=== PATIENT | female | born 1970 | race Asian ===

== ENCOUNTER 2020-08-12 11:55 | Outpatient (CLI) | payer OTHER, SELFPAY ==
[2020-08-12 12:24] LABS: Basophils Percent Auto 0.5 % (0.2-1.2); Eosinophils Absolute Auto 0.3 K/mm3 (0-0.3); Eosinophils Percent Auto 4.4 % (0-4.4); Hematocrit 41.3 % (37.0-47.0); Hemoglobin 13.7 g/dL (12.0-15.0); Immature Granulocyte Absolute 0.01 K/mm3 (0.00-0.031); Immature Granulocyte Percent A 0.2 % (0-0.5); Lymphocytes Absolute Auto 2.15 K/mm3 (0.9-3.2); Lymphocytes Percent Auto 34.9 % (18.3-44.2); Mean Corpuscular HGB Conc 33.2 g/dl (32-36); Mean Corpuscular Volume 93.4 fl (80-100); Mean Platelet Volume 9.4 fl (7.4-10.4); Monocytes Absolute Auto 0.4 K/mm3 (0.1-0.6); Monocytes Percent Auto 6.7 % (2.6-8.5); Neutrophils Absolute Auto 3.3 K/mm3 (1.3-6.7); Neutrophils Percent Auto 53.3 % (45.5-73.1); Platelet Count Result 315 k/mm3 (150-375); Red Blood Count 4.42 M/mm3 (4.2-5.4); Red Cell Distribution Width 12.6 % (11.5-14.5); White Blood Count 6.2 K/mm3 (4.5-10.0)
[2020-08-12 12:34] LABS: Alanine Aminotransferase 24 U/L (4-35); Albumin Level 4.3 g/dL (3.5-5.1); Alkaline Phosphatase 56 U/L (38-126); Anion Gap 8 mmol/L (8-16); Aspartate Amino Transferase 30 U/L (14-36); Bilirubin,Total 0.4 mg/dL (0.2-1.3); Blood Urea Nitrogen 18 mg/dL (7-17); Calcium 9.5 mg/dL (8.4-10.2); Carbon Dioxide 29 mmol/L (22-30); Chloride 102 mmol/L (98-107); Cholesterol 230 mg/dL (0-200); Estimated Glomerular Filt Rate > 60; Glucose 103 mg/dL (65-105); HDL Direct 62 mg/dL; Sodium 139 mmol/L (137-145); Triglycerides 134 mg/dL (<150)
[2020-08-12 12:45] LABS: LDL Cholesterol Direct 123 mg/dL
[2020-08-12 13:18] LABS: Vitamin D 25 Hydroxy 38.2 ng/mL
== END 2020-08-12 11:56 | disposition home or self-care (01) ==
LOC: ANHLAB 11:56
PROVIDERS: PCP Family Medicine Sports Medicine; Visit Provider Obstetrics & Gynecology
DX: Z00.00 Encounter for general adult medical examination without abnormal findings (principal)
CPT/HCPCS: 36415; 80053; 80061; 82306; 84443; 85025

== ENCOUNTER → 2020-10-29 10:26 | Outpatient (CLI) | payer OTHER, SELFPAY ==
--- NOTE | ~2020-10-29 | MM_ITS ---
EXAMINATION: MM screening mendez BI w tello HISTORY: Screening mammogram TECHNIQUE: Craniocaudal and mediolateral oblique 3-D tomosynthesis images were obtained and synthetic 2-D images were generated. CAD analysis was submitted and interpreted. COMPARISON: 02/10/2019 bilateral digital screening mammogram 01/23/2018 diagnostic left digital mammogram and complete left breast ultrasound examination bilateral digital screening mammogram 12/19/2014 bilateral digital screening mammogram BREAST PARENCHYMAL COMPOSITION: There are scattered areas of fibroglandular density. FINDINGS: There is a circumscribed 6.7 mm opacity in the posterior upper right breast on MLO view, no t evident on previous mammogram examinations. Diagnostic right mammogram and targeted right breast ul trasound examination are recommended. Otherwise there is no evidence of suspicious mass, calcification, or architectural distortion to sugg est malignancy in either breast. There has been no suspicious interval change. IMPRESSION: 6.7 mm possible new opacity in the posterior upper right breast on MLO view. Diagnostic right mammogr am and right breast ultrasound examination are recommended. BI-RADS Category 0: Incomplete: Needs additional imaging evaluation. Reviewed, dictated and finalized at location A. USION DIE REPAIR MANAGER IMPRESSION: 6.7 mm possible new opacity in the posterior upper right breast on MLO view. Di agnostic right mammogram and right breast ultrasound examination are recommende d. BI-RADS Category 0: Incomplete: Needs additional imaging evaluation.
--- NOTE | ~2020-10-29 | DEXA_ITS ---
Bone Density Report Name: Anjelica Farah Age: 50 Sex: Female Ethnicity: Date of : 1970 Indication: postmenopausal; screening for osteoporosis; parental hip fracture; Referring Provider: OSCAR RITTER Study: Bone densitometry was performed. Exam Date: October 29, 2020 Accession number: [id number] Bone Density: Region BMD T-score Z-score Classification AP Spine (L1-L4) 1.172 1.1 2.1 Normal Femoral Neck (Left) 0.892 0.4 1.3 Normal Total Hip (Left) 1.088 1.2 1.8 Normal Femoral Neck (Right) 0.874 0.2 1.1 Normal Total Hip (Right) 1.072 1.1 1.6 Normal Total Hip Mean 1.080 1.2 1.7 Normal World Health Organization criteria for BMD impression classify patients as: Normal (T-score at or above -1.0), Osteopenia (T-score between -1.0 and -2.5), or Osteoporosis (T-score at or below -2.5). 10-year Fracture Risk: FRAX not reported because: All T-scores for Spine Total, Hip Total, Femoral Neck at or above -1.0 Clinical Information Provided by Patient: Parent has had a hip fracture Has used the following medications: Vitamin D Patient maximum height was 63 Menopause Age: 49 Drinks caffeinated beverages Onset of menses at age 11 Number of children 2 Impression: The patient has normal bone mass. The patient has risk factors, including: parental hip fracture. Discussion: BONE DENSITY IS ABOVE THE MINIMUM DESIRABLE LEVEL AT ALL SKELETAL SITES TESTED. This patient?s bone mineral density is above the minimum desirable level (T-score -1.0 or better) at all sites measured. The patient should follow a healthful lifestyle (good nutrition with adequate calcium and vitamin D, and appropriate weight-bearing exercise). Follow-Up: Consider repeating this study in 5 years or sooner if there is some new clinical indication. Reported by: ROSSANA on 10/29/2020 10:47:00 AM. Reviewed, dictated and finalized at location AEvangelist PATINO
== END ==
PROVIDERS: Visit Provider Obstetrics & Gynecology
DX: Z12.31 Encounter for screening mammogram for malignant neoplasm of breast (principal); Z78.0 Asymptomatic menopausal state; R92.8 Other abnormal and inconclusive findings on diagnostic imaging of breast
CPT/HCPCS: 77063; 77067; 77080

== ENCOUNTER → 2020-11-27 07:54 | Outpatient (CLI) | payer OTHER, SELFPAY ==
--- NOTE | ~2020-11-27 | MMUS_ITS ---
EXAMINATION: MM diagnostic mammo unilat RT, US breast RT limited HISTORY: Follow-up right breast mass TECHNIQUE: Additional 3-D tomosynthesis images of the right breast were performed and synthetic 2-D i mages were generated. CAD analysis was submitted and interpreted. High resolution right breast ultras ound was performed. COMPARISON: Comparison to multiple prior studies sequentially, with oldest reviewed study dated 12/19. BREAST PARENCHYMAL COMPOSITION: Breast composed of scattered areas of fibroglandular density. FINDINGS: MAMMOGRAPHIC FINDINGS: There are no suspicious masses, calcifications or architectural distortion in the right breast. The m ass identified overlying the pectoralis muscle on prior screening mammogram is not visualized. ULTRASOUND: Right breast ultrasound: There are multiple lymph nodes of the right axilla with normal fatty hilum, largest measuring approximately 1.7 cm. IMPRESSION: 1. No evidence for malignancy in the right breast. Normal right axillary lymph nodes, likely reactive . 2. Routine yearly screening mammogram and regular clinical breast examination are recommended. BI-RADS Category 2: Benign finding(s). Reviewed, dictated and finalized at location A. T ASSIGNER IMPRESSION: 1. No evidence for malignancy in the right breast. Normal right axillary lymph nodes, likely reactive. 2. Routine yearly screening mammogram and regular clinical breast examination a re recommended. BI-RADS Category 2: Benign finding(s).
== END ==
PROVIDERS: PCP Family Medicine Sports Medicine; Visit Provider Obstetrics & Gynecology
DX: R92.8 Other abnormal and inconclusive findings on diagnostic imaging of breast (principal)
CPT/HCPCS: 76642; 77065

== ENCOUNTER 2022-03-23 20:38 | Outpatient (CLI) | payer OTHER, SELFPAY ==
[2022-03-23 21:02] LABS: Hematocrit 42.6 % (37.0-47.0); Hemoglobin 13.9 g/dL (12.0-15.0); Mean Corpuscular HGB Conc 32.6 g/dl (32-36); Mean Corpuscular Hemoglobin 30.5 pg (26-34); Mean Corpuscular Volume 93.6 fl (80-100); Mean Platelet Volume 9.3 fl (7.4-10.4); Platelet Count Result 336 k/mm3 (150-375); Red Blood Count 4.55 M/mm3 (4.2-5.4); Red Cell Distribution Width 12.3 % (11.5-14.5); White Blood Count 5.9 K/mm3 (4.5-10.0)
[2022-03-23 21:16] LABS: Alanine Aminotransferase 17 U/L (6-35); Albumin Level 4.1 g/dL (3.5-5.1); Alkaline Phosphatase 49 U/L (38-126); Anion Gap 6 mmol/L (8-16); Aspartate Amino Transferase 23 U/L (14-36); Bilirubin,Total 0.1 mg/dL (0.2-1.3); Blood Urea Nitrogen 12 mg/dL (7-17); Calcium 9.1 mg/dL (8.4-10.2); Carbon Dioxide 29 mmol/L (22-30); Chloride 104 mmol/L (98-107); Estimated Glomerular Filt Rate > 60; Glucose 98 mg/dL (65-110); Potassium 3.8 mmol/L (3.4-5.0); Sodium 139 mmol/L (137-145)
[2022-03-23 21:18] LABS: Hemoglobin A1C 5.9 % (<5.7)
[2022-03-23 21:33] LABS: T4 Thyroxine 9.89 ug/dL (5.53-11.0)
[2022-03-23 21:47] LABS: Thyroid Stimulating Hormone 0.405 uIU/mL (0.465-4.680)
[2022-03-23 21:55] LABS: Vitamin D 25 Hydroxy 46.2 ng/mL
[2022-03-27 04:14] LABS: FSH 67.6 mIU/mL (***)
[2022-03-28 09:57] LABS: Testosterone Total 16 ng/dL (2-45)
[2022-04-01 16:02] LABS: Estrogen 56.6 pg/mL
== END 2022-03-23 20:39 | disposition home or self-care (01) ==
LOC: ANHOBOP 20:40
PROVIDERS: Visit Provider Obstetrics & Gynecology
DX: N95.1 Menopausal and female climacteric states (principal)
CPT/HCPCS: 36415; 80053; 82306; 82672; 83001; 83002; 83036; 84403; 84436; 84443; 85027

== ENCOUNTER → 2022-12-19 13:03 | Outpatient (CLI) | payer OTHER, SELFPAY ==
--- NOTE | ~2022-12-19 | MM_ITS ---
EXAMINATION: MM screening mendez BI w tello HISTORY: Screening mammogram TECHNIQUE: Craniocaudal and mediolateral oblique 3-D tomosynthesis images were obtained and synthetic 2-D images were generated. CAD analysis was submitted and interpreted. COMPARISON: November 27, 2020 diagnostic right mammogram and limited right breast ultrasound October 29, 2020, February 14, 2019 bilateral screening mammogram examinations BREAST PARENCHYMAL COMPOSITION: There are scattered areas of fibroglandular density. FINDINGS: There is no evidence of suspicious mass, calcification, or architectural distortion to sugg est malignancy in either breast. There has been no suspicious interval change. IMPRESSION: 1. No mammographic evidence of malignancy. 2. Recommend routine screening mammography in one year. BI-RADS Category 1: Negative Reviewed, dictated and finalized at location A.
== END ==
PROVIDERS: PCP Family Medicine Sports Medicine; Visit Provider Obstetrics & Gynecology
DX: Z12.31 Encounter for screening mammogram for malignant neoplasm of breast (principal)
CPT/HCPCS: 77063; 77067

== ENCOUNTER 2023-08-04 01:38 | Day surgery (SDC) | payer OTHER, SELFPAY ==
[2023-07-25 14:13] VITALS: BMI 32.5
--- NOTE | 2023-08-04 07:21 | PM.HPGS ---
History of Present Illness History of Present Illness Consent: Risks, benefits, and alternatives have been discussed and questions answered. Patient agrees to proceed with procedure. Chief complaint: hx colon polyps Narrative: Anjelica Farah is a 53 year old female who was referred for colon cancer screening. Five years ago she had 3 tubular adenomas removed. Review of Systems Review of Systems: All systems reviewed & are unremarkable except as noted in HPI and below PMFSH Past Medical History Medical History (vaginal after ) Surgical History Surgical History History of laparoscopy Previous section S/P cholecystectomy Family History Family History Father Diabetes mellitus Mother Family history of hypercholesterolemia Hypertension Social History Social History Smoking status: Former smoker Tobacco type: cigarettes Smoking end date: 10/09/87 Alcohol intake: current Alcohol use details: socially Substance use: never Substance use type: does not use Lack of Transportation: No Lack of Food: Never True Current Housing: I Have Housing Concerned About Future Housing: No Difficulty Paying Gas/Electric Bills: No Difficulty Paying for Meds: No Currently Unemployed: No Education: Trade/Vocational Certificate Difficulty w/ Childcare or Family Care: No Living arrangements: with family Spiritual care concerns: No Meds Home Medications and Allergies Home Medications Medication Instructions Recorded Confirmed Type multivitamin 1 cap PO DAILY 08/12/20 08/04/23 History bupropion HCl 300 mg 24 hr tablet, 300 mg PO QAM #90 tabs 06/13/23 08/04/23 Rx extended release (Wellbutrin XL) Allergies Allergy/AdvReac Type Severity Reaction Status Date / Time No Known Allergies Allergy Verified 08/04/23 08:32 Exam Const: General: alert Orientation/consciousness: patient oriented x3 Resp: Auscultation: clear to auscultation bilaterally Cardio: Rhythm: regular rhythm GI: GI Palp: Yes Soft to palpation and No Tenderness to palpation present (GI) Neuro: General: patient oriented x3 Assessment and Plan Assessment and plan (1) Colon cancer screening: Code(s): Z12.11 - Encounter for screening for malignant neoplasm of colon Status: Acute Assessment and Plan: Colonoscopy with possible biopsy or polypectomy or cautery or injection of substances.
[2023-08-04 08:33] VITALS: BP 115/81; PULSE 75; RESP 18; TEMP 35.9; O2SAT 98
[2023-08-04] MEDS: LACTATED RINGERS 1,000 ML 150 ML IV CONT (08:36)
--- NOTE | 2023-08-04 09:06 | P.PNAN_ITS ---
Anes - Initial Pre Proc Eval Procedure: Operation Date: 08/04/23 10:00 Proposed Procedures p Colonoscopy - Murtaza Taveras MD Date/Time: 08/04/23 09:06 Surgeon: Murtaza Taveras MD Pre Op Diagnosis: hx colon polyps Patient Data Age: 53 Gender: F Height: 1.6 m Weight: 79.2 kg Last Vital Signs Temp 96.6 F L 08/04/23 08:33 Pulse 75 08/04/23 08:33 Resp 18 08/04/23 08:33 BP 115/81 08/04/23 08:33 Pulse Ox 98 08/04/23 08:33 O2 Del Method Room Air 08/04/23 08:33 Allergies Allergy/AdvReac Type Severity Reaction Status Date / Time No Known Allergies Allergy Verified 08/04/23 08:32 Home Medications Medication Instructions Recorded Confirmed Type multivitamin 1 cap PO DAILY 08/12/20 08/04/23 History bupropion HCl 300 mg 24 hr tablet, 300 mg PO QAM #90 tabs 06/13/23 08/04/23 Rx extended release (Wellbutrin XL) Patient hx anesthesia problems: none Family hx anesthesia problems: none Results Review: All pre-operative results and documents have been reviewed as part of the pre- operative evaluation. [facility] Past Medical History Medical History (vaginal after ) Surgical History Surgical History History of laparoscopy Previous section S/P cholecystectomy Family History Family History Father Diabetes mellitus Mother Family history of hypercholesterolemia Hypertension Social History Social History Smoking status: Former smoker Tobacco type: cigarettes Smoking end date: 10/09/87 Alcohol intake: current Alcohol use details: socially Substance use: never Substance use type: does not use Lack of Transportation: No Lack of Food: Never True Current Housing: I Have Housing Concerned About Future Housing: No Difficulty Paying Gas/Electric Bills: No Difficulty Paying for Meds: No Currently Unemployed: No Education: Trade/Vocational Certificate Difficulty w/ Childcare or Family Care: No Living arrangements: with family Spiritual care concerns: No Anes - Eval Final PreProcedure Day of Procedure 08/04/23 09:06 Patient weight: obese Heart: regular rate and rhythm Lungs: clear to auscultation Airway: Mallampati scale class II Neurological: alert and oriented Last oral intake: >/= 8 hours ASA classification: II Emergent: no Anesthetic plan: proceed Anesthesia type and monitoring: general GIVS and standard monitoring Results Review: All pre-operative results and documents have been reviewed as part of the pre- operative evaluation. Informed Consent: The patient's anesthetic plan and its attendant risks and benefits were discussed with the patient/family/POA. Questions were solicited and answers provided to the satisfaction of the patient/family/POA.
[2023-08-04 09:58] VITALS: BP 92/54; PULSE 66; RESP 17; O2SAT 97
[2023-08-04 10:08] VITALS: BP 108/54; PULSE 63; RESP 16; O2SAT 99
[2023-08-04 10:16] VITALS: BP 112/64; PULSE 60; RESP 13; O2SAT 99
== END 2023-08-04 10:24 | disposition home or self-care (01) ==
PROVIDERS: Visit Provider Internal Medicine Gastroenterology
PROC: 0DJD8ZZ Inspection of Lower Intestinal Tract, Via Natural or Artificial Opening Endoscopic (ICD-10-PCS; CPT 45378; principal; 2023-08-04 10:00)
DX: Z12.11 Encounter for screening for malignant neoplasm of colon (principal); Z86.010 Personal history of colon polyps; Z87.891 Personal history of nicotine dependence; E66.9 Obesity, unspecified; Z68.30 Body mass index [BMI] 30.0-30.9, adult
CPT/HCPCS: 45378; J2001; J2704; J7120

== ENCOUNTER 2024-04-18 11:03 | Outpatient (CLI) | payer OTHER, SELFPAY ==
[2024-04-18 11:43] LABS: Hematocrit 41.7 % (37.0-47.0); Mean Corpuscular HGB Conc 33.6 g/dl (32-36); Mean Corpuscular Hemoglobin 30.9 pg (26-34); Mean Corpuscular Volume 92.1 fl (80-100); Mean Platelet Volume 9.9 fl (7.4-10.4); Platelet Count Result 344 k/mm3 (150-375); Red Blood Count 4.53 M/mm3 (4.2-5.4); Red Cell Distribution Width 12.6 % (11.5-14.5); White Blood Count 6.5 K/mm3 (4.5-10.0)
[2024-04-18 11:57] LABS: Alanine Aminotransferase 21 U/L (6-35); Albumin Level 4.5 g/dL (3.5-5.1); Alkaline Phosphatase 59 U/L (38-126); Anion Gap 9 mmol/L (4-12); Aspartate Amino Transferase 22 U/L (14-36); Bilirubin,Total 0.6 mg/dL (0.2-1.3); Blood Urea Nitrogen 14 mg/dL (7-17); Calcium 9.3 mg/dL (8.4-10.2); Carbon Dioxide 27 mmol/L (22-30); Chloride 106 mmol/L (98-107); Estimated Glomerular Filt Rate > 60; Glucose 112 mg/dL (65-110); Potassium 4.3 mmol/L (3.4-5.0); Sodium 142 mmol/L (137-145)
[2024-04-18 12:28] LABS: Thyroid Stimulating Hormone 0.431 uIU/mL (0.465-4.680)
[2024-04-23 02:54] LABS: FSH 64.1 mIU/mL; LH 47.3 mIU/mL
== END 2024-04-18 11:04 | disposition home or self-care (01) ==
LOC: ANHLAB 11:04
PROVIDERS: Visit Provider Obstetrics & Gynecology
DX: Z01.419 Encounter for gynecological examination (general) (routine) without abnormal findings (principal)
CPT/HCPCS: 36415; 80053; 83001; 83002; 84443; 85027

== ENCOUNTER 2024-04-26 09:18 | Outpatient (CLI) | payer OTHER, SELFPAY ==
[2024-04-26 10:31] LABS: Hemoglobin A1C 6.1 % (<5.7)
[2024-04-26 10:37] LABS: Free T4 Free Thyroxine 1.48 ng/mL (0.78-2.19)
== END 2024-04-26 09:19 | disposition home or self-care (01) ==
LOC: ANHLAB 09:20
PROVIDERS: Visit Provider Obstetrics & Gynecology
DX: Z01.419 Encounter for gynecological examination (general) (routine) without abnormal findings (principal)
CPT/HCPCS: 36415; 83036; 84439

== ENCOUNTER 2024-09-28 08:49 | Outpatient (CLI) | payer OTHER, SELFPAY ==
--- NOTE | ~2024-09-28 | MM_ITS ---
EXAMINATION: MM screening mendez BI w tello HISTORY: Screening TECHNIQUE: Craniocaudal and mediolateral oblique 3-D tomosynthesis images were obtained and synthetic 2-D images were generated. CAD analysis was submitted and interpreted. COMPARISON: Examination was compared with multiple prior studies performed most recently on 12/19/2022 and dating back to 10/29/2020 BREAST PARENCHYMAL COMPOSITION: There are scattered areas of fibroglandular density. FINDINGS: Stable parenchymal pattern without suspicious microcalcifications, architectural distortion, discrete masses or significant asymmetry. IMPRESSION: 1. No mammographic or tomographic evidence of malignancy. 2. Recommend routine screening mammography in one year. BI-RADS Category 1: Negative examination. Reviewed, dictated and finalized at location A. STEWARD
== END 2024-09-28 08:50 | disposition home or self-care (01) ==
LOC: MICIMG 08:50
PROVIDERS: PCP Obstetrics & Gynecology; Visit Provider Obstetrics & Gynecology
DX: Z12.31 Encounter for screening mammogram for malignant neoplasm of breast (principal)
CPT/HCPCS: 77063; 77067

== ENCOUNTER 2025-09-29 14:44 | Outpatient (CLI) | payer OTHER, SELFPAY ==
--- NOTE | ~2025-09-29 | MM_ITS ---
EXAMINATION: MM screening mendez BI w tello HISTORY: Screening. TECHNIQUE: Craniocaudal and mediolateral oblique 3-D tomosynthesis images were obtained and synthetic 2-D images were generated. CAD analysis was submitted and interpreted. COMPARISON: 2023, 2022, and 2020. BREAST PARENCHYMAL COMPOSITION: Not Dense: There are scattered areas of fibroglandular tissue. FINDINGS: No suspicious masses are seen. There are no suspicious calcifications. No unexplained architectural distortion is seen. There are no skin or nipple abnormalities identified. There is no adenopathy seen on the images submitted. IMPRESSION: No mammographic evidence to suggest malignancy is seen. The patient may return to screening mammography as per ACR guidelines. BI-RADS 1 - Negative. Reviewed, dictated and finalized at location A. LE NEEDLE OPERATOR LOCKSTITCH
--- OUTSIDE RECORDS SUMMARY | 2025-09-29 16:32 | XMS_ITS | Encounter Summary ---
Author Organization [facility] Address [address] [place] [address] Care Team Providers Care Clay Stain Mixer Name Role Phone Donovan Miller MD Primary Care Provider [phone] Janet Rose PA-C Primary Care Provider Laura Majano MD Primary Care Provider [phone] Reason for Visit * Reason Onset Date Comments Hospital Follow Up 05/07/2020 DIscharge 04/09 8 Encounter Details Date Type Department Care Team (Latest Contact Info) Description 05/07/2020 Hospital Follow-up Call [facility] Med/Surg [id number] [facility] [address] [place] [address] Keiko Garcia, MILENA Hospital Follow Up (DIscharge 05/05) Social History Tobacco Use Types Packs/Day Years Used Date Smoking Tobacco: Never Smokeless Tobacco: Never Alcohol Use Standard Drinks/Week Comments Yes 0 (1 standard drink = 0.6 oz pur e alcohol) SOCIALLY Comments No Sex and Gender Information Value Date Recorded Sex Assigned at Female 12/06/2024 2:23 PM MOBILE TESTER Legal Sex Female 7:53 PM CDT Gender Identity Female 12/06/2024 2:23 PM MOBILE TESTER Sexual Orientation Straight 12/06/2024 2: 23 PM MOBILE TESTER COVID-19 Exposure Response Date Recorded In the last month, have you been in contact with someone who was confirmed or suspected to have Coronavirus / COVID-19? No / Unsure 05/08/2020 10:20 AM CDT documented as of this encounter Functional Status * RETIRED Are you deaf or do you have serious difficulty hearing Answer Date of Assessment Author Status No 05/05/2020 12:51 PM CDT Acti ve * RETIRED Are you blind or do you have serious difficulty seeing, even when wearing glasses? Answer Date of Assessment Author Status No 05/05/2020 12:51 PM CDT Acti ve * Do you have serious difficulty walking or climbing stairs? Answer Date of Assessment Author Status No 05/05/2020 12:51 PM IVORYT Lauren Martin RN Active * Do you have difficulty dressing or bathing? Answer Date of Assessment Author Status No 05/05/2020 12:51 PM CDT Lauren Martin RN Active * Because of a physical, mental, or emotional condition, do you have difficulty doing errands alone such as visiting a doctor's office or shopping? Answer Date of Assessment Author Status No 05/05/2020 12:51 PM Lauren Correia RN Active documented as of this encounter Mental Status * Because of a physical, mental, or emotional condition, do you have serious difficulty concentrating, remembering, or making decisions? Answer Entry Date Author Status No 05/05/2020 12:51 PM Lauren Correia RN Active documented in this encounter Plan of Treatment Not on file documented as of this encounter Goals Goal Patient Goal Type Associated Problems Recent Progress Patient-Stated? Author Return to independent living General No Daphney Malagon, PAVING PLANT OPERATOR documented as of this encounter Visit Diagnoses Not on filedocumented in this encounter Additional Health Concerns Infection Onset Date Last Indicated Resolved Time COVID-19 Rule Out 10/16/2023 10/16/2023 10/16/2023 11:01 AM MOBILE TESTER Influenza - Seasonal 10/16/2023 10/16/2023 024 12:32 AM MOBILE TESTER documented as of this encounter Care Teams Clay Stain Mixer Relationship Specialty [place] [address] [place] [address] PCP - General FAMILY PRACTICE 06/05/19 03/15/23 Janet Rose PA-C [address] [place] [address] PCP - General PHYSICIAN RADIO ELECTRONICS TECHNICIAN 03/16/23 12/01/24 [place] [address] [place] [address] PCP - General INTERNAL MEDICINE 12/02/24 documented as of this encounter
--- OUTSIDE RECORDS SUMMARY | 2025-09-29 16:32 | XMS_ITS | Clinical Summary ---
Author Organization [facility] Address [address] [place] [address] Care Team Providers Care Chemical Technician Name Role Phone Laura Majano MD Primary Care Provider [phone] Allergies No known active allergies Medications buPROPion XL (WELLBUTRIN XL) 300 MG 24 hr tablet Take 1 tablet (300 mg total) by mouth every morning. Active omeprazole (PRILOSEC) 20 MG capsuleIndicati ons:Elevated liver enzymes Take 1 capsule (20 mg total) by mouth daily. Needs to see PCP for future refills 30 capsule 07/16/2025 Active Active Problems Problem Noted Date Diagnosed Date Posterior tibial tendinitis of both lower extrem ities 05/06/2024 Avulsion fracture of navicular bone of foot 04/09 Acute cholecystitis 05/02/2020 Knee pain 11/21/2016 Resolved Problems Problem Noted Date Diagnosed Date Resolved Date Encounter for preventive health examination 05/08/2014 06/19/2020 Encounters Date Type Department Care Team Description 07/16/[address] [facility] Family [facility] Internal [facility] [address] [place] [address] Laura Majano MD Medication Request from Last 3 Months Immunizations Immunization Administration Dates Next Due Tdap (Adacel) 04/05/2023 Tdap (Generic) 10/09/2008 Family History Medical History Relation Comments Diabetes Father Heart Disease Maternal Grandfather Hypertension Mother Stroke Paternal Uncle Relation Status Comments Father Maternal Grandfather Mother Paternal Uncle Social History Tobacco Use Types Packs/Day Years Used Date Smoking Tobacco: Never Smokeless Tobacco: Never Tobacco Cessation:Counseling Given: No Alcohol Use Standard Drinks/Week Comments Yes 0 (1 standard drink = 0.6 oz pur e alcohol) SOCIALLY PHQ-2 Answer Date Recorded Patient Health Questionnaire-2 Score 0 12/06/2024 Comments No Sex and Gender Information Value Date Recorded Sex Assigned at Female 12/06/2024 2:23 PM PLASTERER ROUGH Legal Sex Female 7:53 PM CDT Gender Identity Female 12/06/2024 2:23 PM PLASTERER ROUGH Sexual Orientation Straight 12/06/2024 2: 23 PM PLASTERER ROUGH Last Filed Vital Signs Vital Sign Reading Time Taken Comments Blood Pressure 139/86 12/06/2024 2:24 PM PLASTERER ROUGH Pulse 77 12/06/2024 2:24 PM PLASTERER ROUGH Temperature 36.2 C (97.2 F) 12/06/2024 2:24 PM PLASTERER ROUGH Respiratory Rate 16 12/06/2024 2:24 PM PLASTERER ROUGH Oxygen Saturation 96% 12/06/2024 2:24 PM PLASTERER ROUGH Inhaled Oxygen Concentration - - Weight 84.7 kg (186 lb 12.8 oz) 12/06/2024 2:24 PM PLASTERER ROUGH Height 157.5 cm (5' 2) 12/06/2024 2:24 PM PLASTERER ROUGH Body Mass Index 34.17 12/06/2024 2:24 PM PLASTERER ROUGH Plan of Treatment Health Maintenance Due Date Last Done Comments Cervical Cancer Screening Pa p Smear (Age 30 to 64) Every 3 Years 1970 Annual Physical 01/05/1971 Hepatitis B Vaccines (1 of 3 - 19+ 3-dose series) 01/05/1987 Cervical Cancer Screening Pa p with HPV Testing (Age 30 to 64) Every 5 Years 01/05/1998 Cervical Cancer Screening wi th HPV 01/05/1998 Mammogram Screening 2008 Pneumococcal Vaccine: 50+ Years (1 of 1 - PCV) 01/05/2018 Zoster Vaccines (1 of 2) 01/05/2018 COVID-19 Vaccine (2024-2 6 season) 2025 Influenza Adult (#1) 2025 DTaP, Tdap and Td Vaccines ( 3 - Td or Tdap) 04/05/2033 04/05/2023, 10/09/2008 Colorectal Cancer Screening Colonoscopy (10 Years) 08/04/2033 08/04/2023, 01/19/2018 Hepatitis C Completed 12/06/2024 PHQ-2 (Physician Kermit) Completed 12/06/2024 Hepatitis A Vaccines Aged Out No long er eligible based on patient's age to complete this topic Meningococcal B Vaccine Aged Out No l onger eligible based on patient's age to complete this topic Meningococcal Vaccine Aged Out No francisco andrea eligible based on patient's age to complete this topic RSV Immunizations Under 20 Months Aged Out No longer eligible b ased on patient's age to complete this topic Goals Goal Patient Goal Type Associated Problems Recent Progress Patient-Stated? Author Return to independent living General No Vesna, Daphney Schrader, IMMIGRATION ASSOCIATE Medical Devices Implanted Type Area Manager Stylist Device Identifier Shelf Expiration Date Model / Serial / Lot Easyfuse Dynamic Compression System Pc Gf 30, Ss Implanted:Qty: 1 on 07/09/2024 by Pamela Baxter DPM at [facility] Left: Foot 01/01/2032 [id number] / / [id number] Easyfuse Dynamic Compression System Millie, Pc, Gf 30 Implanted:Qty: 1 on 07/09/2024 by Pamela Baxter DPM at [facility] Left: Foot 10/17/2031 [id number] / / [id number] Viaflow Flowable Placental Tissue Matrix Implanted:Qty: 1 on 07/09/2024 by Pamela Baxter DPM at [facility] Left: Foot 02/11/2029 [id number] / / [id number] Procedures Procedure Name Priority Date/Time Associated Diagnosis Comments HEPATITIS C ANTIBODY Routine 12/06/2024 3:54 PM PLASTERER ROUGH Elevated liver enzymes COLONOSCOPY GENERIC (SCAN ORDER) 08/04/2023 from Last 3 Months or Most Recently Relevant to Health Maintenance Results * HEPATITIS C AB ([facility] ONLY) (12/06/2024 3:54 PM PLASTERER ROUGH) HEPATITIS C AB NON-REACTI VE NON-REACTI VE 12/06/2024 9:[address] [facility] 12/06/2024 3:54 PM PLASTERER ROUGH Laura Majano MD LABORATORY Final Resul t [facility] [address] [place] [address], [place] [phone] * COLONOSCOPY GENERIC (08/04/2023) 08/04/2023 [facility] Scanned SCANNING Final Resu lt from Last 3 Months or Most Recently Relevant to Health Maintenance Insurance Advance Directives * Full Code (Latest Code Status on File) Date Activated Date Inactivated Comments 05/02/2020 8:18 AM 05/05/2020 4:19 PM Care Teams Chemical Technician Relationship Specialty [place] [id number] [facility] [address] [place] [address] PCP - General INTERNAL MEDICINE 12/02/24
--- OUTSIDE RECORDS SUMMARY | 2025-09-29 16:32 | XMS_ITS | Encounter Summary ---
Author Organization [facility] Address [address] [place] [id number] Care Team Providers Care Patient Registration Manager Name Role Phone Janet Rose PA-C Primary Care Provider [phone] Laura Majano MD Primary Care Provider [phone] Encounter Details Date Type Department Care Team (Late st Contact Info) Description 06/24/2024 Prep for Procedure [facility] [address] [place], [place] [id number] Pamela Baxter, DPM [address] [place] [address] Social History Tobacco Use Types Packs/Day Years Used Date Smoking Tobacco: Never Smokeless Tobacco: Never Alcohol Use Standard Drinks/Week Comments Yes 0 (1 standard drink = 0.6 oz pur e alcohol) SOCIALLY PHQ-2 Answer Date Recorded Patient Health Questionnaire-2 Score 0 04/05/2023 Comments No Sex and Gender Information Value Date Recorded Sex Assigned at Female 12/06/2024 2:23 PM GYMNASTICS INSTRUCTOR Legal Sex Female 7:53 PM CDT Gender Identity Female 12/06/2024 2:23 PM GYMNASTICS INSTRUCTOR Sexual Orientation Straight 12/06/2024 2: 23 PM GYMNASTICS INSTRUCTOR documented as of this encounter Functional Status [...] PM CDT Lauren Martin RN Active * Do you [...] 12:51 PM CDT Lauren Martin RN Active documented as of this encounter Mental Status * Because of a physical, mental, or emotional condition, do you have serious difficulty concentrating, remembering, or making decisions? Answer Entry Date Author Status No 05/05/2020 12:51 PM CDT Lauren Martin RN Active documented in this encounter Plan of Treatment Not on file documented as of this encounter Goals Goal Patient Goal Type Associated Problems Recent Progress Patient-Stated? Author Return to [facility] General No Daphney Malagon, PLUG WIRER documented as of this encounter Results * MRSA SCREENING (07/03/2024 10:35 AM CDT) SPEC DESCRIPTION NASAL 07/03/2024 10:34 AM CDT [facility] SPECIAL REQUESTS NO SPECIAL REQUEST 07/03/2024 10:34 AM CDT [facility] CULTURE RESULT NO METHICILLIN RESISTANT STAPHYLOCOCCUS AUREUS ISOLATED 07/04/2024 11:43 AM CDT [facility] SPECIMEN FROM INTERNAL NOSE / Unknown 07/03/2024 10:35 AM CDT 07/03/2024 10:36 AM CDT Pamela Thouvenot DPM MICROBIOLOGY - GENERAL ORDERAB LES Final Result [facility] [address] [place] [address], [place] [phone] [facility] [address] [place] [address], documented in this encounter Visit Diagnoses Diagnosis Preop testing- Primary Preoperative examination, unspecified documented in this encounter Care Teams Patient Registration Manager Relationship Specialty Start Date End Date Janet Rose PA-C PCP - General PHYSICIAN OCULAR CARE TECHNOLOGIST 03/16/23 12/01/24 [place] [address] [place] [address] PCP - General INTERNAL MEDICINE 12/02/24 documented as of this encounter
--- OUTSIDE RECORDS SUMMARY | 2025-09-29 16:33 | XMS_ITS | Encounter Summary ---
Author Organization [facility] Address [address] [place] [address] Care Team Providers Care Deburrer Machine Name Role Phone Janet Rose PA-C Primary Care Provider [phone] Laura Majano MD Primary Care Provider [phone] Encounter Details Date Type Department Care Team (Late st Contact Info) Description 04/05/2023 [facility] Message Enc [facility] Family & Internal Medicine [address] [id number] Janet Rose PA-C [facility] [place] [address] Holter monitoring. Social History Tobacco Use Types Packs/Day Years Used Date Smoking Tobacco: Never Smokeless Tobacco: Never Alcohol Use Standard Drinks/Week Comments Yes 0 (1 standard drink = 0.6 oz pur e alcohol) SOCIALLY PHQ-2 Answer Date Recorded Patient Health Questionnaire-2 Score 0 04/05/2023 Comments No Sex and Gender Information Value Date Recorded Sex Assigned at Female 12/06/2024 2:23 PM MANAGER BENEFIT Legal Sex Female 7:53 PM CDT Gender Identity Female 12/06/2024 2:23 PM MANAGER BENEFIT Sexual Orientation Straight 12/06/2024 2: 23 PM MANAGER BENEFIT documented as of this encounter Functional Status [...] 12:51 PM IVORYT Lauren Martin RN Active documented as of this encounter Mental Status * Because of a physical, mental, or emotional condition, do you have serious difficulty concentrating, remembering, or making decisions? Answer Entry Date Author Status No 05/05/2020 12:51 PM IVORYT Lauren Martin RN Active documented in this encounter Plan of Treatment Not on file documented as of this encounter Goals Goal Patient Goal Type Associated Problems Recent Progress Patient-Stated? Author Return to independent living General No Daphney Malagon, STATIONARY ENGINEER APPRENTICE documented as of this encounter Visit Diagnoses Not on filedocumented in this encounter Additional Health Concerns Infection Onset Date Last Indicated Resolved Time COVID-19 Rule Out 10/16/2023 10/16/2023 10/16/2023 11:01 AM MANAGER BENEFIT Influenza - Seasonal 10/16/2023 10/16/2023 024 12:32 AM MANAGER BENEFIT documented as of this encounter Care Teams Deburrer Machine Relationship Specialty Start Date End Date Janet Rose PA-C PCP - General PHYSICIAN CALL WORKER PERSON 03/16/23 12/01/24 [place] [address] [place] [address] PCP - General INTERNAL MEDICINE 12/02/24 documented as of this encounter
== END 2025-09-29 14:45 | disposition home or self-care (01) ==
PROVIDERS: Visit Provider Nurse Practitioner Family
DX: Z12.31 Encounter for screening mammogram for malignant neoplasm of breast (principal)
CPT/HCPCS: 77063; 77067